=== PATIENT | male | born 1980 ===

== ENCOUNTER 2019-05-23 01:54 | Outpatient (CLI) | payer MEDICARE, MEDICAID | END 2019-05-23 23:59 | disposition home or self-care (01) | LOC: DIABETIC 01:54 | PROVIDERS: ATTEND Specialist | DX: E11.65 Type 2 diabetes mellitus with hyperglycemia (principal); Z79.4 Long term (current) use of insulin; Z79.84 Long term (current) use of oral hypoglycemic drugs; Z79.899 Other long term (current) drug therapy | CPT/HCPCS: G0108 ==